=== PATIENT | male | born 1995 | race Caucasian/White ===

== ENCOUNTER 2020-02-28 10:45 | Emergency (ER) | payer OTHER ==
[2020-02-28 10:54] VITALS: BMI 30.1
[2020-02-28] MEDS ORDERED: ONDANSETRON 4 MG/2 ML VIAL IVPUSH ONE (11:16)
[2020-02-28] MEDS ORDERED: SODIUM CHLORIDE 0.9% 500 ML INFUS.BAG IV ONE (11:16)
[2020-02-28] MEDS ORDERED: ONDANSETRON 4 MG/2 ML VIAL ONE (11:26)
--- NOTE | 2020-02-28 11:38 | PDOC ---
History of Present Illness - General Chief Complaint: Pain Stated Complaint: ABDOMINAL PAIN Time Seen by Provider: 02/28/20 11:06 History Source: Patient Exam Limitations: No Limitations - History of Present Illness Initial Comments: 02/28/20 11:18 Patient is a 25-year-old male who presents to the ED stating that he is feeling dizzy and has vomited twice since waking up this morning. He does admit to drinking an excessive amount of alcohol last night. The patient denies any abdominal pain, sob, cough, headache, fevers, chills. He denies any past medical history. He admits to having an allergy to ibuprofen for which he gets mouth swelling. He denies any other complaints at this time. Past History - Past Medical History Allergies/Adverse Reactions: Allergies Allergy/AdvReac Type Severity Reaction Status Date / Time ibuprofen [From Motrin] Allergy Verified 02/28/20 10:53 Home Medications: Ambulatory Orders Multivitamin [One-Daily Multi-Vitamin] 1 each PO DAILY #30 tablet 01/15/20 COPD: No - Psycho Social/Smoking Cessation Hx Smoking History: Never smoked Review of Systems - Review of Systems Comments:: 02/28/20 11:38 - Review of Systems Able to Perform ROS?: Yes Constitutional: No: Fever, Chills, Loss of Appetite, Night Sweats, Weakness HEENTM: No: Eye Pain, Vision changes, Ear Pain, Throat Pain, Throat Swelling, Mo uth Pain, Difficulty Swallowing Respiratory: No: Cough, Shortness of Breath, Wheezing, Sputum Production Cardiac (ROS): No: Chest Pain, Chest Tightness, Palpitations, Irregular Heart Beat, Edema ABD/GI: No: Abdominal Pain, Diarrhea; Positive: Nausea, Vomiting : No Dysuria, No Hematuria, No Frequency, No Urgency Musculoskeletal: No: Muscle Pain, Back Pain, Joint Pain, Muscle Weakness, Neck Pain Integumentary: No: Lesions, Rash Neurological: No: Headache, Numbness, Tingling, Weakness, Speech Difficulties; Positive: dizziness *Physical Exam - Vital Signs Last Vital Signs Temp Pulse Resp BP Pulse Ox 98.9 F 111 H 18 146/96 100 02/28/20 10:51 02/28/20 10:51 02/28/20 10:51 02/28/20 10:51 02/28/20 10:51 - Physical Exam 02/28/20 11:38 - Physical Exam General Appearance: Nourished, Appropriately Dressed, No Distress HEENT: EOMI, Normal Voice, No Muffled/Hoarse voice, No Nasal Congestion, No Rhinorrhea, Hearing Grossly Normal, slightly dry oral mucosa Neck: Supple, No Lymphadenopathy (R), No Lymphadenopathy (L), No Rigidity, No Decreased range of motion Respiratory/Chest: Lungs Clear, Normal Breath Sounds. No Respiratory Distress, No Accessory Muscle Use Cardiovascular: Regular Rhythm, Regular Rate, S1, S2 Gastrointestinal/Abdominal: Normal Bowel Sounds, Soft. Non-tender, No Guarding, No Rebound, No Rigidity Musculoskeletal: Normal Inspection. No Decreased Range of Motion Extremity: Normal Capillary Refill, Normal Inspection Integumentary: Normal Color, Dry. No Rash Neurologic: digital engineer II-XII NML intact, Fully Oriented, Alert, Normal Mood/Affect, Normal Response; normal gait, no nystagmus ED Treatment Course - LABORATORY CBC & Chemistry Diagram: 02/28/20 11:35 02/28/20 11:35 Medical Decision Making - Medical Decision Making 02/28/20 11:42 Assessment: Pt is a 25 y/o male with dizziness and vomiting after drinking an excessive amount of alcohol last night. Plan: -saline lock and 1L of IV fluids -cbc, cmp -Zofran IV -Will reassess 02/28/20 12:19 Pt states that he is starting to feel better but is feeling cramps in his legs. He has been made aware that he must drink a lot of water and/or gatorade to help. He is still pending his CMP. 02/28/20 12:34 The patient has been made aware that his LFTs are slightly elevated and he should avoid drinking any alcohol. He should avoid Tylenol as well. He should drink plenty of fluids and get plenty of rest. He understands and agrees with this treatment plan and he is stable for discharge. He has been made aware that he must follow-up with his primary doctor for further evaluation. Discharge - Discharge Information Problems reviewed: Yes Clinical Impression/Diagnosis: Dizziness, Dehydration, mild Condition: Stable Disposition: HOME - Follow up/Referral Referrals: Basia Maria [Primary Care Provider] - Call tomorrow - Patient Discharge Instructions Patient Printed Discharge Instructions: DI for Dehydration -- Adult Additional Instructions: Avoid alcohol use as your liver function is slightly elevated. Get plenty of rest and drink plenty of fluids. Drink Gatorade to help with electrolytes. Follow-up with your primary doctor for repeat evaluation and to have your liver function tests rechecked. Print Language: [email or web address] - Post Discharge Activity
[2020-02-28 12:06] LABS: BASO % 0.4 % (0-2.0); EOS % 0.7 % (0-4.5); HEMATOCRIT 46.7 % (35.4-49); MCH 30.5 pg (25.7-33.7); MCHC 34.2 g/dl (32.0-35.9); MEAN CELL VOLUME 89.1 fl (80-96); MEAN PLT VOLUME 10.8 fl (7.5-11.1); NEUT % 74.9 % (42.8-82.8); PLATELET COUNT 245 K/MM3 (134-434); RBC 5.23 M/mm3 (4.00-5.60); RDW 13.4 % (11.9-15.9); WHITE BLOOD COUNT 9.1 K/mm3 (4.0-10.0)
[2020-02-28 12:30] LABS: ALBUMIN 4.8 g/dl (3.4-5.0); BILIRUBIN,TOTAL 0.6 mg/dL (0.2-1); BLOOD UREA NITROGEN 9.5 mg/dL (7-18); CALCIUM 9.2 mg/dL (8.5-10.1); CREATININE 1.2 mg/dL (0.55-1.3); TOT PROT 8.2 g/dl (6.4-8.2)
[2020-02-28 12:43] VITALS: BP 140/79; PULSE 86; TEMP 98.1
== END 2020-02-28 12:43 | disposition home or self-care (01) ==
LOC: JER 10:45
PROC: 3E033GC Introduction of Other Therapeutic Substance into Peripheral Vein, Percutaneous Approach (ICD-10-PCS; principal; 2020-02-28)
DX: R42 Dizziness and giddiness (principal); E86.0 Dehydration
CPT/HCPCS: 36415; 80053; 85025; 96374; 99284-25